=== PATIENT | female | born 1955 ===

== ENCOUNTER 2020-05-28 17:29 | Emergency (ER) | payer MEDICARE ==
[~2020-05-28] VITALS: Ht 152.4 cm; Wt 81.7 kg
[~2020-05-28 17:29] MED LIST: ASPI325 PO; ATIVAN0.5 MG PO; FLUO10 PO; LISI5; Prozac40 MG PO; Ultram50 MG PO
== END 2020-05-28 20:38 | disposition home or self-care (01) ==
LOC: ER 17:29
DX: M25.461 Effusion, right knee (principal); M25.462 Effusion, left knee; I10 Essential (primary) hypertension; J44.9 Chronic obstructive pulmonary disease, unspecified; F17.200 Nicotine dependence, unspecified, uncomplicated; Z79.82 Long term (current) use of aspirin; Z79.899 Other long term (current) drug therapy; Z88.2 Allergy status to sulfonamides
CPT/HCPCS: 96372; 99283-25; J1885

== ENCOUNTER → 2021-02-09 | Outpatient (CLI) | payer MEDICARE ==
[2021-02-09 20:09] LABS: Appearance, Urine Clear (Clear); Bilirubin, Urine Neg (Neg); Blood, Urine 2+ (Neg); Color, Urine Yellow (P-Yellow); Glucose Qualitative, Urine Neg (Neg); Ketones, Urine Neg (Neg); Leukocyte Esterase, Urine Neg (Neg); Nitrite, Urine Neg (Neg); Protein, Urine Neg (Neg); Urobilinogen, Urine NORM (Normal)
[2021-02-09 20:26] LABS: Bacteria Few /hpf; Squamous Epithelial Cells Few /hpf (Few)
== END ==
LOC: LAB 10:30 → LAB SHORT 10:30
PROVIDERS: Nurse Practitioner Family
DX: R35.0 Frequency of micturition (principal)
CPT/HCPCS: 81001; 87086

== ENCOUNTER 2023-12-18 06:51 | Observation (INO) | payer MEDICARE, OTHER ==
[~2023-12-18] VITALS: Ht 147.3 cm; Wt 83.7 kg
[~2023-12-18 06:51] MED LIST changes: +GABA300 PO; +IBUP600 PO; +LIDO700A20 TOP; -LISI5; +LISI5 PO; +LITH300C PO; +METH40 PO; +METPRE4DP PO; +Robaxin750 MG PO
[2023-12-18] MEDS ORDERED: Lactated Ringer's 1,000 ML IV SCH ×2 (07:45→12:25)
[2023-12-18] MEDS ORDERED: Acetaminophen 500 MG Tab PO SCH ×2 (07:45→16:00)
[2023-12-18] MEDS ORDERED: CeFAZolin Sodium 2,000 MG in NS 100 ML IV SCH (07:45)
[2023-12-18] MEDS ORDERED: Chlorhexidine Mouth Care 15 ML UDC MT SCH (07:45)
[2023-12-18] MEDS ORDERED: OxyCODONE HCL 10 MG TABCR PO SCH (07:45)
[2023-12-18] MEDS ORDERED: Ropivacaine 0.5% HCl/Pf 123.125 MG,EPINEPHrine HCL 0.25 MG,Ketorolac Tromethamine 15 MG... INFIL SCH (07:55)
[2023-12-18 08:14] VITALS: BP 142/89
[2023-12-18] MEDS ORDERED: Midazolam HCl 1MG / ML 2ML Vial IV ONE (09:55)
[2023-12-18] MEDS ORDERED: levalbuterol HCL 1.25 MG/3 ML VIAL INH ONE (10:00)
--- NOTE | 2023-12-18 11:04 | NUR ---
PT A&OX4, BREATHING RA, ANXIOUS. Patient confirms NPO status and agrees with scheduled surgery. Pre-Op teaching done. Pt verbalizes understanding. PT DELAYED SURGERY 2/2 ECHO REQUIREMENT PRIOR TO SURGERY.
[2023-12-18] MEDS ORDERED: Etomidate 2MG / ML 10ML Vial ONE (11:48)
[2023-12-18] MEDS ORDERED: Metoprolol Tartrate 0 ML IV ONE (11:49)
[2023-12-18] MEDS ORDERED: NS 200 ML IV ONE (11:50)
[2023-12-18] MEDS ORDERED: Phenylephrine HCl 10mg/ml 1 ml Vial ONE ×2 (11:51→11:52)
[2023-12-18] MEDS ORDERED: Promethazine HCl 25 MG Tab PO PRN (12:20)
[2023-12-18] MEDS ORDERED: Bisacodyl 10 MG Supp PR PRN (12:20)
[2023-12-18] MEDS ORDERED: OxyCODONE HCL 5 MG TAB PO PRN ×3 (12:20→19:50)
[2023-12-18] MEDS ORDERED: FentaNYL Citrate 50 MCG/ML 2 ML Injection ONE (12:23)
[2023-12-18] MEDS ORDERED: Ondansetron HCl 2 MG / ML 2ML Vial IV PRN (12:25)
[2023-12-18] MEDS ORDERED: HYDROmorphone HCl/Pf 1MG SYR IV PRN (12:25)
[2023-12-18] MEDS ORDERED: Magnesium Hydroxide Conc 10 ML UDC PO PRN (12:25)
[2023-12-18] MEDS ORDERED: Metoclopramide HCl 5MG / ML 2ML Vial IV PRN (12:25)
[2023-12-18] MEDS ORDERED: propofoL 20 ML IV ONE (12:29)
[2023-12-18] MEDS ORDERED: DiphenhydrAMINE HCL 25 MG Cap PO PRN (12:30)
[2023-12-18] MEDS ORDERED: Sodium Nitroprusside 50 MG in Dextrose 5% 250 ML IV SCH (12:35)
--- NOTE | 2023-12-18 13:14 | NUR ---
12/18/23 1314 Keri Meza CASE CANCELLED BY DR. WEAVER AT 1125.
[2023-12-18] MEDS ORDERED: NiCARdipine HCL 50 MG in NS 250 ML IV SCH (13:15)
[2023-12-18 13:58] LABS: BASOPHILS ABSOLUTE AUTO 0.03 K/mm3 (0.00-0.23); BASOPHILS PERCENT AUTO 0 % (0-2); EOSINOPHILS ABSOLUTE AUTO 0.28 K/mm3 (0.00-0.68); EOSINOPHILS PERCENT AUTO 3 % (0-6); Hemoglobin 12.2 g/dL (11.5-16.0); IMMATURE GRAN ABSOLUTE AUTO 0.02 K/mm3 (0.00-0.10); IMMATURE GRAN PERCENT AUTO 0 % (0-1); LYMPHOCYTES ABSOLUTE AUTO 2.77 K/mm3 (0.84-5.20); LYMPHOCYTES PERCENT AUTO 33 % (21-46); MONOCYTES ABSOLUTE AUTO 0.62 K/mm3 (0.16-1.47); MONOCYTES PERCENT AUTO 7 % (4-13); Mean Corpuscular HGB 30.2 pg (26.0-34.0); Mean Corpuscular Volume 92 fL (80-100); Mean Platelet Volume 9.4 fL (9.1-12.4); NEUTROPHILS ABSOLUTE AUTO 4.67 K/mm3 (1.96-9.15); NEUTROPHILS PERCENT AUTO 56 % (41-73); Platelet Count 217 K/mm3 (150-400); RDW Coefficient Variation 13.7 % (11.7-14.2); RDW Standard Deviation 46.3 fL (35.1-46.3); Red Blood Cell Count 4.04 M/mm3 (3.80-5.20); White Blood Cell Count 8.39 K/mm3 (4.00-11.30)
[2023-12-18] MEDS ORDERED: Lisinopril 20 MG Tab PO ONE (14:00)
[2023-12-18] MEDS ORDERED: Labetalol HCL 5 MG/ML 4ML Injection (Single Dose) ONE (14:08)
[2023-12-18] MEDS ORDERED: Atropine Sulfate 0.4 MG/1 ML Vial ONE (14:09)
[2023-12-18] MEDS ORDERED: SuccINYLCHOLINE Chloride 100 MG/5 ML 5MLSYR ONE (14:10)
[2023-12-18 14:15] LABS: Bun/Creatinine Ratio 17.7 (12.0-20.0); Calcium, Blood 8.6 mg/dL (8.5-10.1); Creatinine, Blood 0.62 mg/dL (0.40-1.00); Phosphorus, Blood 3.7 mg/dL (2.5-4.9); Potassium, Blood 3.4 mmol/L (3.5-5.5)
--- NOTE | 2023-12-18 14:47 | NUR ---
IRRIGATION WORKER in OR/Transfer to ICU: At approx 1230hr, IRRIGATION WORKER/Code blue called to OR. Upon this RN's arrival patient had a pulse and being BMV ventilated by Dr. Harrington. Per report fro Dr. Harrington, patient's never lost pulse or quit breathing. IRRIGATION WORKER/Code called r/t patient's BP. After induction, patient's BP (per A-line) increased to systolic's over 300, labetalol and propofol pushes given. Upon this RN's arrival, patient's BP had decreased to systolic's 140's-160's. Dr. Harrington requested transfer to ICU for further evaluation and BP management. After approx 15min, patient woke, able to follow simple commands, move all extremities and adequately ventilate without assistance. Patent then place on non-rebreather mask and transferred to ICU rm1. Upon arrival to ICU patient's BP increased to systolic over 200. Nitro gtt started at 10mcg/min and titrated up to 50mcg/min over the next 1.5hr. Systolic BP decreased to 160's. Dr. Stephens also consulted at bedside by Dr. Harrington. Received orders for PO lisinipril (home medication). Neuro status remains wnl. Alert and oriented x4, all other VSS. Call light in reach. Will continue to monitor.
[2023-12-18] MEDS ORDERED: Potassium Chloride 20 MEQ TabCR PO ONE (15:00)
[2023-12-18] MEDS ORDERED: Methadone HCL 10 MG TAB PO SCH (16:00)
[2023-12-18] MEDS ORDERED: Potassium Chloride 20 MEQ/15 ML UDC PO ONE (16:00)
[2023-12-18] MEDS ORDERED: AmLODIPine Besylate 5 MG Tab PO SCH (17:00)
--- NOTE | 2023-12-18 17:59 | NUR ---
Shift Summary: Patient remains stable throughout remainder of shift. Nitro gtt titrated down from 50mcg/min to stand-by at approx 1730 HR, PO norvasc also given at that time per Dr. Odonnell. BP decreased to systolics 115-130's. HR remains stable at sinus in the 60's. Neuro remains wnl. Rt radial A-line wnl, no s/s of bleeding or hematoma, distal digits wnl. PO (home med) dose of methadone effective to manage pt's rt knee pain. Transferred to BS to void without difficulty. Call light in reach, makes needs known. Will continue to monitor until report to NOC shift RN.
[2023-12-18] MEDS ORDERED: Acetaminophen 500 MG Tab PO PRN (19:50)
--- NOTE | 2023-12-18 20:22 | NUR ---
ASSUMED CARE PT WAKES SPONTANEOUSLY/VERBAL STIMULI. INTERMITTENTLY WILL NOD OFF DURING CONVERSATION. STATES "I HAVEN'T SLEPT SINCE SUNDAY". ORIENTED X4. SPO2 >92% ON RA; MAP >65 W/ SBP 110-120~'S. DENIES CP, SOB, AND NAUSEA AT THIS TIME. ARTLINE PATENT AND ZEROED AT START OF SHIFT. SITE WNL AND ASSESSED W/ OFFGOING NURSE.
[2023-12-18] MEDS ORDERED: Gabapentin 300 MG Cap PO SCH (21:00)
[2023-12-18] MEDS ORDERED: Docusate Sodium 100 MG Cap PO SCH (21:00)
[2023-12-18] MEDS ORDERED: Lithium Carbonate 300 MG Cap PO SCH (21:00)
[2023-12-18 21:15] VITALS: BP 114/79
[2023-12-18 22:00] VITALS: BP 99/61
[2023-12-18 23:00] VITALS: BP 94/68
[2023-12-19] VITALS (8 sets, daily range): BP systolic 104–148; BP diastolic 64–94
--- NOTE | 2023-12-19 01:27 | NUR ---
TRANSFER: PATIENT IS RECIEVED FROM ICU VIA WHEEL CHAIR. VSS, PATIENT IS ORIENTED TO THE ROOM AND CALL PERKINS. NO SMOKING POLICY IS REVIEWED WITH PATIENT.
--- NOTE | 2023-12-19 01:49 | NUR ---
TRANSFER PT TRANSFERRED TO MED FLOOR 303; REPORT GIVEN TO NURSE; BELONGINGS RETRIEVED BY GUNITE NOZZLE OPERATOR. MEDS W/ PATIENT.
--- NOTE | 2023-12-19 02:00 | NUR ---
PAIN: PATIENT REPORTED PAIN IN BILAT KNEES ON ARRIVAL TO THE UNIT AND REQUESTED PRN MEDICATION. WHEN EXHIBIT ARTIST CAME TO THE ROOM WITH THE MEDICATION 5 MINUTES LATER THE PATIENT WAS SLEEPING AND SNORING. PATIENT IS NOT WOKEN FOR A PRN PAIN MEDICATION ADMINISTRATION.
--- NOTE | 2023-12-19 05:13 | NUR ---
SHIFT SUMMARY: PATIENT IS ASSISTED TO THE BATHROOM, SBA AND USE OF A CANE. PVR WAS 50ML AFTER AN UNMEASURED VOID. OXYCODONE AND TYLENOL ARE GIVEN FOR BREAK THROUGH BLE PAIN WITH GOOD EFFECT.
[2023-12-19 05:34] LABS: BASOPHILS ABSOLUTE AUTO 0.03 K/mm3 (0.00-0.23); BASOPHILS PERCENT AUTO 0 % (0-2); EOSINOPHILS ABSOLUTE AUTO 0.33 K/mm3 (0.00-0.68); EOSINOPHILS PERCENT AUTO 5 % (0-6); Hematocrit 34.7 % (33.0-51.0); Hemoglobin 10.9 g/dL (11.5-16.0); IMMATURE GRAN ABSOLUTE AUTO 0.02 K/mm3 (0.00-0.10); IMMATURE GRAN PERCENT AUTO 0 % (0-1); LYMPHOCYTES ABSOLUTE AUTO 2.67 K/mm3 (0.84-5.20); LYMPHOCYTES PERCENT AUTO 37 % (21-46); MONOCYTES ABSOLUTE AUTO 0.57 K/mm3 (0.16-1.47); MONOCYTES PERCENT AUTO 8 % (4-13); Mean Corpuscular HGB 29.5 pg (26.0-34.0); Mean Corpuscular HGB Conc 31.4 g/dL (31.5-36.5); Mean Corpuscular Volume 94 fL (80-100); Mean Platelet Volume 9.4 fL (9.1-12.4); NEUTROPHILS ABSOLUTE AUTO 3.68 K/mm3 (1.96-9.15); NEUTROPHILS PERCENT AUTO 50 % (41-73); Platelet Count 214 K/mm3 (150-400); RDW Coefficient Variation 14.1 % (11.7-14.2)
[2023-12-19 06:33] LABS: Bun/Creatinine Ratio 19.6 (12.0-20.0); Calcium, Blood 8.6 mg/dL (8.5-10.1); Creatinine, Blood 1.12 mg/dL (0.40-1.00); Magnesium, Blood 2.2 mg/dL (1.6-2.4)
[2023-12-19] MEDS ORDERED: Lisinopril 20 MG Tab PO SCH (09:00)
[2023-12-19] MEDS ORDERED: Aspirin 81 MG Chew PO SCH (09:00)
[2023-12-19] MEDS ORDERED: FLUoxetine HCL 20 MG CAP PO SCH (09:00)
--- NOTE | 2023-12-19 12:34 | NUR ---
"Spiritual Care | Pt. Request Pt. is awake in bed and welcomes my visit. Pt. is pleasant and verbalized the events that led to her current health sitiuation. Listen with empathy and interest and consider matters of kasie and belief. Pt. displayed evidence of trust. Prayed with Pt. Pt. verbalized gratitude for the spiritual care visit and requested that this model and mold maker plaster return tomorrow."
--- NOTE | 2023-12-19 15:51 | NUR ---
CHANGED PHARMACY TO [facility] PER SENIOR STRATEGY MANAGERPRODUCT MGMT DEV MANAGER.
[2023-12-19] MEDS ORDERED: AmLODIPine Besylate 5 MG Tab PO SCH ×2 (18:00)
--- NOTE | 2023-12-19 20:07 | NUR ---
SUMMARY- PT A/O X4. USES CALL LIGHT TO MAKE NEEDS KNOWN. USES WALKER/SBA TO BATHROOM. PAIN CONTROLLED IN KNEES WITH METHADONE 185MG AM DOSE AND PRN OXYCODONE 5MG X2 THIS SHIFT, PT STATES THIS COMBO WORKS GREAT TO KEEP PAIN AT BAY BUT NEVER BELOW 6/10. FEELS BONE ON BONE. VERY DISAPPOINTED TO NOT HAVE THE SG COMPLETED. STARTED ON NEW BP MED NORVASC THIS PM. STARTED NYSTATIN POWDER FOR REDNESS IN GROIN. TELE SR 60'S. PLAN FOR PT TO DC TO SNF RELATED TO KNEE ISSUES, LIKELY TOMORROW DEPENDING ON BED AVAIL. REPORTED TO NOC MARILY SANTANA.
[2023-12-19] MEDS ORDERED: Miconazole Nitrate 2% 85 GM PWD TOP SCH (21:00)
[2023-12-20 02:38] VITALS: BP 132/68
--- NOTE | 2023-12-20 06:02 | NUR ---
SHIFT SUMMARY. PATIENT IS A&OX4. PATIENT IS UP INDEPENDENTLY/SBA WITH FWW TO THE BATHROOM. PATIENT CALLS APPROPRIATELY AND IS ABLE TO MAKE HER NEEDS KNOWN. PATIENT IS UPSET THAT SHE DID NOT GET HER SURGERY AND STATES "I AM MORE MAD THAT DOCTOR TAWANNA NEVER SAW ME AND JUST LEFT ME" I TALKED WITH PATIENT AND LET HER KNOW IT IS NOTED IN THE NOTES THAT IS STILL FOLLOWING YOU AND IS WAITING ON REPORTS FROM PT/OT IN MOVING FORWARD PER NOTES. PATIENT C/O PAIN-MEDICATED WITH PRN OXYCODONE X1. TELE IS ON WITH LEADS IN PLACE-NO EVENTS TONIGHT. BED IS LOCKED IN THE LOWEST POSITION WITH CALL LIGHT IN REACH. CARE IS ONGOING. WILL REPORT TO ONCOMING NURSE AT SHIFT CHANGE.
[2023-12-20 07:41] VITALS: BP 157/85
[2023-12-20] MEDS ORDERED: GABA300 PO ×2 (14:02→16:16)
[2023-12-20] MEDS ORDERED: AMLO10 PO (14:02)
[2023-12-20] MEDS ORDERED: ALBU90OI61 INH (14:03)
[2023-12-20] MEDS ORDERED: IBUP800 PO (14:04)
[2023-12-20] MEDS ORDERED: TIOT18 INH (14:05)
[2023-12-20] MEDS ORDERED: Albuterol HFA200 ACT/6.7 GM INH INH PRN (14:30)
[2023-12-20] MEDS ORDERED: Tiotropium Bromide 2.5 MCG/ACT MIST INHAL (10 ACT/4 GM) INH SCH (14:30)
--- NOTE | 2023-12-20 14:40 | NUR ---
Pt. is sitting up on the side of her bed and welcomes my visit. Pt. is pleasant, and verbalized a report of her prognosis. Listen with empathy and interest. Pt verbalized that she had been seen by the Eucharistic volunteers but welcomed prayer. Prayed with the Pt. Pt. verbalized gratitude for the spiritual care visit and welcomed this exterior designer to return.
[2023-12-20 15:53] VITALS: BP 162/87
[2023-12-20] MEDS ORDERED: LISI20 PO (16:17)
[2023-12-20 17:01] LABS: SARS-Cov-2 (COVID-19) PCR, MMC NEGATIVE (NEGATIVE)
--- NOTE | 2023-12-20 17:55 | NUR ---
SHIFT SUMMARY PATIENT ALERT AND INTERACTIVE. PATIENT AMBULATING IN ROOM. PATIENT CONTINUES TO HAVE KNEE PAIN. DR STACY CLEARED PATIENT TO GO TO REHAB. PATIENT TO GO TO [facility] TOMORROW. COVID SWAB DONE.
[2023-12-20] MEDS ORDERED: AmLODIPine Besylate 5 MG Tab PO SCH (18:00)
[2023-12-20 19:57] VITALS: BP 148/95
--- NOTE | 2023-12-20 21:08 | NUR ---
TELEMETRY RECIEVED CALL FROM THANH Irwin IN TELEMERY NOTIFYING THIS RN THAT PATIENT HAD CONVERTED TO A-FLUTTER AT 149 AND PATIENTS HEART RATE HAD FLEXUATED BETWEEN 140-160 BPM AND LASTED FROM 2057 TO 2107. PATIENT ASYMPTOMATIC-PATIENT DENIED RACING HEART RATE, CHEST PAIN, OR ANY CHANGES.
--- NOTE | 2023-12-20 21:10 | NUR ---
HOSPITALIST CONTACTED. HOSPITALIST NOTIFIED OF PATIENTS CHANGE IN RATE AND RHYTHM FROM NSR AT 77 TO A-FLUTTER AT 149 BACK TO NSR AT 88. PATIENT ASYMPTOMATIC. DR. WDAE TO REVIEW PATIENTS CHART AND MAKE CHANGES NEEDED. ALSO NOTIFIED OF PATIENTS NAUSEA THAT PATIENT RECIEVES LITTLE RELIEF WITH ZOFEAN- TO REVIEW CHART AND ADD ADDITIONAL MEDICATION FOR N/V IF APPROPRIATE. THIS RN TO FOLLOW UP WITH NEW ORDERS SOON AVALIABLE.
--- NOTE | 2023-12-20 22:30 | NUR ---
2149 PATIENT C/O HAVING TROUBLE BREATHING-PATIENT SATTING AT 96-97% ON RA. PATIENT ASKED FOR OXYGEN OR BREATHING TREATMENT-1L OF OXYGEN APPLIED. THIS RN ASKED PATIENT IF SHE HAS ANXIETY-PATIENT RESPONDED "YES", ASKED PATIENT IF THIS IS NEW FOR HER- PATIENT RESPONDED "NO". PATIENT DESATTED TO 88% AND QUICKLY RECOVERED SATTING AT 96/97 ON RA. MONITORING PATIENTS SPO2 VIA VITALS TOWER. 2229- PATIENT RECOVERED QUICKLY, ON OXYGEN FOR APPROX. 4 MINUTES. PATIENT MONITORED FOR 30 MINUTES ON RA WITH VITALS TOWER. NO FURTHER C/O TROUBLE BREATHHING. LUNGS ARE CLEAR BUT DIMINISHED. PATIENT IS SATTING AT 97% ON RA.
[2023-12-21 03:01] VITALS: BP 143/92
[2023-12-21 07:29] VITALS: BP 126/76
--- NOTE | 2023-12-21 07:39 | NUR ---
SHIFT SUMMARY. PATIENT IS A&OX4. PATIENT CALLS APPROPRIATELY AND MAKES HER NEEDS KNOWN. PATIENT IS TALKATIVE AND ENGAGES WITH STAFF APPROPRIATELY. PATIENT IS PLEASANT. PATIENT CONTINUES TO HAVE PAIN TO BILATERAL KNEES-MEDICATED PER EMAR. PLAN IS FOR PATIENT TO DISCHARGE TO [facility] 12/21/23 FOR REHAB. BED IS LOCKED IN THE LOWEST POSITION WITH CALL LIGHT IN REACH. REPORT GIVEN TO LJ PIERCE.
[2023-12-21] MEDS ORDERED: Enoxaparin 40 MG/0.4 ML SYR SC SCH (09:00)
--- NOTE | 2023-12-21 12:30 | NUR ---
SHIFT SUMMARY AND DISCHARGE PATIENT ALERT AND INTERACTIVE. PATIENT UP WITH WALKER. PATIENT TRANSFERING TO [facility] FOR THERAPY. PATIENT ANXIOUS ABOUT TRANSFER. PATIENT STATES THAT SHE DOES NOT KNOW ANYONE THERE. PATIENT TRANSPORTED VIA WHEELCHAIR TRANSPORT. BELONGINGS SENT WITH PATIENT. IV DC'D AND TELE REMOVED BEFORE DEPARTED.
== END 2023-12-21 12:36 ==
LOC: ORSCMMR 06:51 → ORD 10:30 → ICUE 12:58 → ORSCMMR 12:58 → MEDS 12:58 → ICUE 12:58 → ORD 15:45 → ICUE 17:04 → MEDS 12-19 01:13 → ORD 02-11 10:15
PROVIDERS: Internal Medicine; Student in an Organized Health Care Education/Training Program; ADMIT Orthopaedic Surgery
DX: M17.0 Bilateral primary osteoarthritis of knee (principal); I16.0 Hypertensive urgency; I16.1 Hypertensive emergency; I10 Essential (primary) hypertension; J44.9 Chronic obstructive pulmonary disease, unspecified; I42.1 Obstructive hypertrophic cardiomyopathy; E87.6 Hypokalemia; F11.20 Opioid dependence, uncomplicated; Z87.891 Personal history of nicotine dependence; Z53.9 Procedure and treatment not carried out, unspecified reason; Z88.2 Allergy status to sulfonamides; Z88.8 Allergy status to other drugs, medicaments and biological substances; Z79.82 Long term (current) use of aspirin; Z79.899 Other long term (current) drug therapy
CPT/HCPCS: 36415; 80048; 83735; 84100; 85025; 93306; 94640; 94664; 94760; 96372; 97110-CQ; 97116; 97161; 97530; 97530-CQ; A9270; G0378; J0171; J0330; J0461; J0690; J0735; J1650; J1885; J2250; J2371; J2704; J2795; J3010; J7060; J7120; J7614; U0002